=== PATIENT | female | born 1955 | race Caucasian/White ===

== ENCOUNTER 2024-10-22 18:50 | Inpatient (IN) | payer MEDICARE, OTHER ==
[~2024-10-22] VITALS: Ht 162.6 cm; Wt 122.9 kg
[~2024-10-22 18:50] MED LIST: BACL20TA MT; GABA-290 MT; LEVO100T9 MT; MELO-106 MT; METO-396 MT; MONT-39 MT; POTA-354 MT; SPIR25TA6 MT
[2024-10-22 19:41] LABS: HEMATOCRIT. 30.9 % (36.0-48.0); HEMOGLOBIN. 9.7 g/dL (12.0-16.0); MEAN CORPUSCULAR HGB CONC 31.4 g/dL (31.0-37.0); MEAN CORPUSCULAR VOLUME 95.5 fL (81.0-99.0); MEAN PLATELET VOLUME 10.2 fl (7.4-10.4); PLATELET 241 x1000/uL (130-400); RED BLOOD CELL COUNT 3.23 mill/uL (4.2-5.4); RED CELL DISTRIBUTION WIDTH 15.4 % (11.6-14.6); WHITE BLOOD COUNT 10.9 x1000/uL (4.5-11.0)
[2024-10-22 19:46] LABS: POTASSIUM 5.6 mEq/L (3.5-5.1)
[2024-10-22 19:48] LABS: CALCIUM 9.3 mg/dL (8.7-10.4)
[2024-10-22 19:52] LABS: DIFFERENTIAL COMMENT 1
[2024-10-22] MEDS: KETOROLAC 30MG/ML VIAL IV STA (19:54)
[2024-10-22 20:20] LABS: ALANINE AMINOTRANSFERASE 21 IU/L (10-49); ALBUMIN 3.7 g/dL (3.2-4.8); ASPARTATE AMINOTRANSFERASE 24 IU/L (<34); BILIRUBIN DIRECT 0.2 mg/dL (<=3.0); BILIRUBIN TOTAL 0.4 mg/dL (0.1-1.0); PROTEIN TOTAL 6.4 g/dL (6.0-8.3)
[2024-10-22 20:22] LABS: PROTHROMBIN TIME 10.5 sec (9.6-11.0)
[2024-10-22] MEDS ORDERED: CALCIUM GLUCONATE 1,000 MG in DEXT 5% WATER 100 ML IV ONE (20:30)
[2024-10-22] MEDS: ALBUTEROL (0.083%) 2.5MG/3ML NEB HHN SCH (20:43)
[2024-10-22 20:45] VITALS: PULSE 78; RESP 18; O2SAT 94
[2024-10-22] MEDS: INSULIN REGULAR (HUMULIN R) 1000UNITS/10ML VIAL IV ONE (20:49)
[2024-10-22 20:57] LABS: PLATELET ESTIMATE NORMAL
[2024-10-22] MEDS: SODIUM CHLORIDE 0.9% 1,000 ML IV ONE (20:59)
[2024-10-22] MEDS: DEXTROSE 50% WATER 50ML SYRINGE IV ONE (20:59)
[2024-10-22] MEDS: SODIUM BICARBONATE 8.4% 50MEQ/50ML SYR IV ONE (21:00)
[2024-10-22] MEDS: CALCIUM GLUCONATE 1GM PREMIX 50 ML IV NR (21:00)
[2024-10-23] MEDS ORDERED: ONDANSETRON HCL 4MG/2ML INJ IV PRN (01:00)
[2024-10-23] MEDS ORDERED: ACETAMINOPHEN 325MG TABLET PO PRN ×2 (01:00)
[2024-10-23] MEDS ORDERED: IPRATROPIUM/ALBUTEROL 0.5-3(2.5)MG/3ML NEB HHN PRN (01:00)
[2024-10-23] MEDS ORDERED: GUAIFENESIN 200MG/10ML SUGAR FREE UDC PO PRN (01:00)
[2024-10-23] MEDS ORDERED: CLONIDINE 0.1MG TABLET PO PRN (01:00)
[2024-10-23] MEDS ORDERED: MAGNESIUM/ALUMINUM HYDROXIDE/SIMETHICONE 30ML UDC PO PRN (01:00)
[2024-10-23] MEDS ORDERED: NALOXONE HCL 0.4MG/ML VIAL IV PRN (01:15)
[2024-10-23] MEDS ORDERED: NON FORMULARY MED XX SCH (02:00)
[2024-10-23] MEDS: DEXT 5%/0.45% NACL 1000ML 1,000 ML IV SCH (03:36)
[2024-10-23] MEDS: DEXTROSE 50% WATER 50ML SYRINGE IV NR (03:59)
[2024-10-23] MEDS: INSULIN REGULAR (HUMULIN R) 1000UNITS/10ML VIAL IV NR (04:18)
[2024-10-23] MEDS: SODIUM BICARBONATE 8.4% 50MEQ/50ML SYR IV NR (04:21)
[2024-10-23 04:32] LABS: PHOSPHORUS 3.8 mg/dL (2.5-4.9)
[2024-10-23] MEDS ORDERED: MAGNESIUM 2 G PREMIX 50 ML IV NR (06:30)
[2024-10-23 08:00] VITALS: BP 118/52; PULSE 84; RESP 18; TEMP 37; O2SAT 92
[2024-10-23 08:34] VITALS: BP 118/52; PULSE 84; RESP 18; TEMP 37
[2024-10-23 09:42] LABS: *AMPHETAMINES SCREEN URINE NEGATIVE (NEGATIVE); *BARBITURATES SCREEN URINE NEGATIVE (NEGATIVE); *BENZODIAZEPINES SCREEN URINE NEGATIVE (NEGATIVE); *COCAINE SCREEN URINE NEGATIVE (NEGATIVE); METHADONE URINE SCREEN NEGATIVE (NEGATIVE); OPIATES URINE SCREEN NEGATIVE (NEGATIVE)
[2024-10-23 09:43] LABS: CANNABINOID URINE SCREEN NEGATIVE (NEGATIVE); ECSTASY MDMA SCREEN URINE NEGATIVE (NEGATIVE); PHENCYCLIDINE URINE SCREEN NEGATIVE (NEGATIVE)
[2024-10-23] MEDS: ENOXAPARIN 40MG/0.4ML SYR SUBCUT SCH (09:47)
[2024-10-23] MEDS: FAMOTIDINE 20MG/2ML VIAL IV SCH (09:47)
[2024-10-23] MEDS: MORPHINE SULFATE 2 MG/ML INJ (NOT FOR IM USE) IV PRN (10:02)
[2024-10-23 11:03] LABS: CHLORIDE 113 mEq/L (98-107); SODIUM 145 mEq/L (136-145)
[2024-10-23 11:04] LABS: CALCIUM 8.6 mg/dL (8.7-10.4); CARBON DIOXIDE 21 mEq/L (21-32)
[2024-10-23 11:08] LABS: IRON 32 ug/dL (50-170)
[2024-10-23 11:09] LABS: CREATININE 1.8 mg/dL (0.6-1.0); GLUCOSE 91 mg/dL (70-105); UREA NITROGEN BLOOD 38 mg/dL (9-23)
[2024-10-23 11:11] LABS: TOTAL IRON BINDING CAPACITY 565 ug/dl (250-425)
[2024-10-23 11:33] LABS: FERRITIN 67 ng/mL (10-291); VITAMIN B12 SERUM 641 pg/mL (211-911)
[2024-10-23 11:34] LABS: FOLIC ACID (FOLATE) SERUM 16.94 ng/mL (>5.38)
[2024-10-23] MEDS: SUCRALFATE 1G TABLET PO SCH (11:45)
[2024-10-23 12:00] VITALS: BP 113/46; PULSE 79; RESP 18; TEMP 36.8; O2SAT 100
[2024-10-23] MEDS: BRIMONIDINE 0.2% OPHTH DROPS 5ML BOTHEYE SCH (14:00)
[2024-10-23] MEDS: DORZOLAMIDE 2% OPHTH 10 ML BOTTLE BOTHEYE SCH (14:00)
[2024-10-23 16:00] VITALS: BP 165/85; PULSE 63; RESP 18; TEMP 36.2; O2SAT 100
[2024-10-23] MEDS: FERROUS SULFATE 325MG TABLET PO SCH (18:34)
[2024-10-23 20:00] VITALS: BP 142/70; PULSE 77; RESP 19; TEMP 36.7; O2SAT 98
[2024-10-23] MEDS: CITALOPRAM HYDROBROMIDE 10MG TABLET PO SCH (21:00)
[2024-10-23] MEDS: TRAZODONE HCL 50MG TABLET PO SCH (21:00)
[2024-10-23 21:41] LABS: CLARITY URINE CLOUDY (CLEAR); COLOR URINE YELLOW (YELLOW); GLUCOSE URINE NEGATIVE (NEGATIVE); KETONES URINE NEGATIVE (NEGATIVE); LEUKOCYTE ESTERASE URINE 2+ (NEGATIVE); NITRITE URINE POSITIVE (NEGATIVE); OCCULT BLOOD URINE NEGATIVE (NEGATIVE); PH URINE 5.5 (4.5-8.0); PROTEIN URINE TRACE (NEGATIVE); SPECIFIC GRAVITY URINE 1.012 (1.005-1.030); UROBILINOGEN URINE 0.2 E.U./dL (0.2-1.0)
[2024-10-23 22:28] LABS: BACTERIA URINE 4+; RBC URINE 0-2 /hpf (0-2); SQUAMOUS EPITHELIAL CELL URINE 1+ /lpf (RARE/1+)
[2024-10-23 22:29] LABS: WBC URINE 25-50 /hpf (0-2)
[2024-10-24] VITALS: BP 116/60; PULSE 94; RESP 17; TEMP 36.4; O2SAT 95
[2024-10-24 04:00] VITALS: BP 116/68; PULSE 77; RESP 18; TEMP 36.2; O2SAT 98
[2024-10-24] MEDS: LEVOTHYROXINE SODIUM 100MCG TABLET PO SCH (05:47)
[2024-10-24] MEDS: CEFTRIAXONE 1GM/50ML 50 ML IV SCH (05:47)
[2024-10-24 08:00] VITALS: BP 122/61; PULSE 78; RESP 18; TEMP 36.6; O2SAT 90
[2024-10-24 08:11] LABS: HEMATOCRIT. 26.1 % (36.0-48.0); HEMOGLOBIN. 8.3 g/dL (12.0-16.0); MEAN CORPUSCULAR HGB CONC 31.8 g/dL (31.0-37.0); MEAN CORPUSCULAR VOLUME 94.4 fL (81.0-99.0); MEAN PLATELET VOLUME 9.4 fl (7.4-10.4); PLATELET 213 x1000/uL (130-400); RED BLOOD CELL COUNT 2.76 mill/uL (4.2-5.4); RED CELL DISTRIBUTION WIDTH 15.7 % (11.6-14.6); WHITE BLOOD COUNT 9.3 x1000/uL (4.5-11.0)
[2024-10-24 08:18] LABS: CARBON DIOXIDE 25 mEq/L (21-32); CHLORIDE 114 mEq/L (98-107); POTASSIUM 4.4 mEq/L (3.5-5.1); SODIUM 146 mEq/L (136-145)
[2024-10-24 08:19] LABS: CALCIUM 8.2 mg/dL (8.7-10.4)
[2024-10-24 08:23] LABS: CREATININE 1.2 mg/dL (0.6-1.0); GLUCOSE 107 mg/dL (70-105)
[2024-10-24 08:24] LABS: TRIGLYCERIDE 101 mg/dL (0-150); UREA NITROGEN BLOOD 20 mg/dL (9-23)
[2024-10-24 08:25] LABS: CHOLESTEROL 98 mg/dL (<200); LDL CHOLESTEROL 60 mg/dL (5-100)
[2024-10-24 08:26] LABS: HDL CHOLESTEROL < 20 mg/dL (>65)
[2024-10-24 08:27] LABS: THYROID STIMULATING HORMONE 3.98 uIU/mL (0.55-4.78)
[2024-10-24 08:41] LABS: DIFFERENTIAL COMMENT 1
[2024-10-24] MEDS ORDERED: SULF1TAB48 MT (11:20)
[2024-10-24] MEDS ORDERED: FERR325T6 PO (11:20)
[2024-10-24] MEDS ORDERED: PANT40TA51 PO (11:20)
[2024-10-24 12:00] VITALS: BP 132/47; PULSE 89; RESP 14; TEMP 36.7; O2SAT 92
[2024-10-24] MEDS: METOCLOPRAMIDE HCL 10MG/2ML VIAL IV PRN (13:21)
[2024-10-24 15:14] VITALS: BP 132/47; PULSE 89; TEMP 98.1; O2SAT 92
[2024-10-24 16:00] VITALS: BP 134/62; PULSE 81; RESP 16; TEMP 36.7; O2SAT 93
[2024-10-24 17:02] LABS: PLATELET ESTIMATE NORMAL
== END 2024-10-24 16:41 | disposition home health service (06) | DRG 392 ==
LOC: ER 18:50 → 5WST 22:31 → EDBEDREQ 22:52 → EDBEDREQTM 22:52
PROVIDERS: ADMIT Hospitalist; ATTEND Hospitalist
DX: K31.89 Other diseases of stomach and duodenum (principal); N17.9 Acute kidney failure, unspecified; N39.0 Urinary tract infection, site not specified; Z68.42 Body mass index [BMI] 45.0-49.9, adult; D50.9 Iron deficiency anemia, unspecified; E03.9 Hypothyroidism, unspecified; E66.01 Morbid (severe) obesity due to excess calories; T39.395A Adverse effect of other nonsteroidal anti-inflammatory drugs [NSAID], initial encounter; J45.909 Unspecified asthma, uncomplicated; E87.5 Hyperkalemia; K43.9 Ventral hernia without obstruction or gangrene; K80.20 Calculus of gallbladder without cholecystitis without obstruction; F32.9 Major depressive disorder, single episode, unspecified; I10 Essential (primary) hypertension; H40.9 Unspecified glaucoma; K21.9 Gastro-esophageal reflux disease without esophagitis; Z96.653 Presence of artificial knee joint, bilateral; Z96.643 Presence of artificial hip joint, bilateral; Z90.81 Acquired absence of spleen; Z79.1 Long term (current) use of non-steroidal anti-inflammatories (NSAID); Z98.84 Bariatric surgery status; Z55.6 Problems related to health literacy; Y92.89 Other specified places as the place of occurrence of the external cause
CPT/HCPCS: 36415; 74018; 74176; 76700; 80048; 80061; 80076; 80305; 81003; 82607; 82728; 82746; 83036; 83540; 83550; 83605; 83735; 84100; 84145; 84300; 84439; 84443; 84481; 85025; 93005; 93970; 94640; 97162; 97165; 99291; J0610; J0696; J1650; J1815; J1885; J2270; J2765; J3490; J7030; J7060